=== PATIENT | female | born 1965 | race Caucasian/White ===

== ENCOUNTER 2022-08-21 09:16 | Outpatient (OUT) | payer BC, OTHER, SELFPAY ==
[2022-08-21 10:18] LABS: Estimated Average Glucose 126 mg/dL
[2022-08-21 10:21] LABS: Alanine Aminotransferase 30 U/L (14-59); Aspartate Amino Transferase 15 U/L (15-37); Chol HDL Ratio 5.4; Cholesterol 182 mg/dL (<=200); HDL Cholesterol 34 mg/dL (40-60); Triglycerides 226 mg/dL (<=150); VLDL CHOLESTEROL 45.2 mg/dL
== END 2022-08-21 09:17 | disposition home or self-care (01) ==
LOC: LAB 09:21
PROVIDERS: PCP Nurse Practitioner; Visit Provider Nurse Practitioner
DX: E78.2 Mixed hyperlipidemia (principal); R73.03 Prediabetes
CPT/HCPCS: 36415; 80061; 83036; 84450; 84460

== ENCOUNTER 2023-04-11 21:27 | Outpatient (REF) | payer OTHER, SELFPAY ==
[2023-04-17 08:12] LABS: Age Gdln ACOG Testing Note (.); HPV Aptima Negative (Negative); IGP, Aptima HPV, rfx 16/18,45 Note (.)
== END 2023-04-11 21:28 | disposition home or self-care (01) ==
LOC: LAB 21:27
PROVIDERS: PCP Nurse Practitioner; Visit Provider Nurse Practitioner
DX: Z01.419 Encounter for gynecological examination (general) (routine) without abnormal findings (principal)
CPT/HCPCS: 87624; G0145